=== PATIENT | female | born 1965 | race Caucasian/White ===

== ENCOUNTER → 2017-03-02 | Outpatient (CLI) | payer MEDICARE, OTHER ==
--- NOTE | 2017-03-02 12:17 | Diagnostic Imaging Report ---
PROCEDURE: US Thyroid. TECHNIQUE: Multiple real-time grayscale images were obtained of the thyroid in various projections. INDICATION: Thyroid nodule FINDINGS: Right and left lobes of thyroid gland measure 5.2 x 2.7 x 1.8 cm and 4.8 x 2.2 x 1.4 cm, respectively. There are several hypoechoic nodules in the thyroid gland. Largest is to left of midline at the level of the isthmus and measures 0.9 x 0.8 x 0.5 cm. Smaller subcentimeter nodules are seen in the right lobe. No periglandular abnormality is appreciated. IMPRESSION: Small hypoechoic nodules appear solid. These could be related to thyroid adenomas. No dominant or hyperemic mass is identified. If warranted, followup study could be performed in 4-6 months for reassessment of nodular volume. Dictated by: Dictated on workstation # [id number]
== END ==
LOC: RAD 10:44
DX: E04.2 Nontoxic multinodular goiter (principal)
CPT/HCPCS: 76536